=== PATIENT | male | born 1995 | race African-American/Black ===

== ENCOUNTER 2018-11-02 10:46 | Emergency (ER) | payer OTHER ==
[2018-11-02 11:16] VITALS: BP 116/69
--- NOTE | 2018-11-02 12:07 | UC ---
Skin Complaint HPI - HPI Summary HPI Summary: 23-year-old male presents with complaints of a tick bite to his left upper chest 2 days ago. States he immediately removed the tick. He feels certain that the tick was attached for less than 24 hours and that it was not engorged at the time of removal. Denies fever, rash, flulike illness, myalgias, joint pain or swelling. - History of Current Complaint Chief Complaint: UCSkin Time Seen by Provider: 11/02/18 11:54 Stated Complaint: SKIN ISSUE Hx Obtained From: Patient Pain Intensity: 0 - Allergy/Home Medications Allergies/Adverse Reactions: Allergies Allergy/AdvReac Type Severity Reaction Status Date / Time Penicillins Allergy Rash Verified 11/02/18 11:16 Home Medications: Home Medications Allergy Cerum 1 INJ DAILY 11/02/18 [History] PMH/Surg Hx/FS Hx/Imm Hx Previously Healthy: Yes - Denies siginificant PMH - Surgical History Surgical History: Yes Surgery Procedure, Year, and Place: scar revision to scalp - Family History Known Family History: Positive: Non-Contributory - Social History Occupation: Student Lives: Dormitory/Roommates Alcohol Use: Occasionally Substance Use Type: None Smoking Status (MU): Current Some Day Smoker Review of Systems All Other Systems Reviewed And Are Negative: Yes Constitutional: Negative: Fever, Chills Skin: Negative: Rash Eyes: Positive: Negative ENT: Positive: Negative Respiratory: Positive: Negative Cardiovascular: Positive: Negative Gastrointestinal: Positive: Negative Genitourinary: Positive: Negative Musculoskeletal: Negative: Arthralgia, Myalgia Neurological: Positive: Negative Is Patient Immunocompromised?: No Physical Exam - Summary Physical Exam Summary: GENERAL APPEARANCE: Well developed, well nourished, alert and cooperative, and appears to be in no acute distress. CARDIAC: Normal S1 and S2. No S3, S4 or murmurs. Rhythm is regular. There is no peripheral edema, cyanosis or pallor. Extremities are warm and well perfused. Capillary refill is less than 2 seconds. Peripheral pulses intact. LUNGS: Clear to auscultation without rales, rhonchi, wheezing or diminished breath sounds. ABDOMEN: Positive bowel sounds. Soft, nondistended, nontender. No guarding or rebound. No masses or hepatosplenomegally. MUSKULOSKELETAL: ROM intact to all extremities. No joint erythema or tenderness. Normal muscular development. Normal gait. SKIN: small scabbed circular lesion less than 0.5 cm to his left upper anterior chest wall. Triage Information Reviewed: Yes Vital Signs: Initial Vital Signs Temp 98.0 F 11/02/18 11:14 Pulse 62 11/02/18 11:14 Resp 18 11/02/18 11:14 BP 116/69 11/02/18 11:14 Pulse Ox 100 11/02/18 11:14 Vital Signs Reviewed: Yes Course/Dx - Course Course Of Treatment: 23-year-old male presents with complaints of a tick bite to his left upper chest 2 days ago. States he immediately removed the tick. He feels certain that the tick was attached for less than 24 hours and that it was not engorged at the time of removal. Denies fever, rash, flulike illness, myalgias, joint pain or swelling. Afebrile. Vital signs stable. Exam revealed a small scabbed circular lesion less than 0.5 cm to his left upper anterior chest wall and otherwise was unremarkable. Discussed with the patient that based on his history there is no indication for prophylactic treatment for Lyme disease at this time. I reviewed symptoms of Lyme disease with the patient as well as anticipatory guidance and warning symptoms and encouraged him to monitor for the next several weeks. Patient verbalizes understanding and agrees with plan of care. - Differential Diagnoses - Skin Complaint Differential Diagnoses: Cellulitis, Local Allergic Reaction, Tick Born Illness - Diagnoses Provider Diagnosis: Tick bite of left side of chest wall Discharge - Sign-Out/Discharge Documenting (check all that apply): Patient Departure All imaging exams completed and their final reports reviewed: No Studies - Discharge Plan Condition: Stable Disposition: HOME Patient Education Materials: Tick Bite (ED) Referrals: No Primary Care Phys,NOPCP [Primary Care Provider] - Additional Instructions: Ticks transmit infection only after they have attached and then taken a blood meal from their new host. A tick that has not attached cannot not pass any infection. Since the deer tick that transmits Lyme disease typically feeds for more than 36 hours before transmitting the organisim that causes Lyme disease, the risk of acquiring Lyme disease from an tick bite is only 1.2 to 1.4 percent , even in an area where the disease is common. There is no benefit of blood testing for Lyme disease at the time of the tick bite because even people who become infected will not have a positive blood test until approximately two to six weeks after the tick bite. To try to avoid getting bitten by a tick, you can: * Wear shoes, long-sleeved shirts, and long pants when you go outside. Keep ticks away from your skin by tucking your pants into your socks. * Wear light colors so you can spot any ticks that get on your clothes. * Wear bug spray or cream that contains DEET. (Do not use DEET on babies younger than 2 months.) On your clothes and gear, you can use bug repellents that have a chemical called "permethrin." * Shower within 2 hours of being outdoors if you think you have been in an area where there are ticks. * Put dry clothes briefly (for about 4 minutes) in a dryer after being outdoors. * Check your clothes and body for ticks after being outdoors. Be sure to check your scalp, waist, armpits, groin, and backs of your knees. Check your children , too. After a tick bite, you will need to monitor for signs of Lyme disease over the nexter several weeks even if you have been given antibiotics to prevent the infection. Seek immediate medical attention if you develop a bullseye rash, fever, flu-like symptoms including headache, stiff neck, fatigue, muscle aches, joint pain or swelling. - Billing Disposition and Condition Condition: STABLE Disposition: Home
== END 2018-11-02 12:19 | disposition home or self-care (01) ==
LOC: UCEAST 10:46
DX: S20.362A Insect bite (nonvenomous) of left front wall of thorax, initial encounter (principal); W57.XXXA Bitten or stung by nonvenomous insect and other nonvenomous arthropods, initial encounter; Y92.9 Unspecified place or not applicable; Z88.0 Allergy status to penicillin; Z72.0 Tobacco use
CPT/HCPCS: 99201; G0463